=== PATIENT | male | born 1970 | race Hispanic/Latino ===

== ENCOUNTER 2017-05-19 15:01 | Emergency (ER) | payer SELFPAY ==
[2017-05-19] MEDS ORDERED: Ketorolac Tromethamine 30 MG/ML VIAL ONE (16:12)
--- NOTE | 2017-05-19 16:48 | RAD ---
RADIOGRAPH LEFT FOOT THREE VIEWS: 05/19/17 HISTORY: 46-year-old male with left foot pain. COMPARISON: None. FINDINGS: No fracture, dislocation, periosteal elevation, permeative lesion, osteophytic lesion, or osteoblasti c lesion. Mild DJD at first MTP joint. No major arthritic changes at the rest of the joints. No hallu x valgus. IMPRESSION: 1. 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 2. Otherwise negative. POS: JEZ
--- NOTE | 2017-05-19 17:01 | RAD ---
FOUR VIEWS OF THE LEFT KNEE 05/19/17 COMPARISON: None. HISTORY: Left knee pain. FINDINGS: No knee joint effusion, fracture, or evidence of dislocation. IMPRESSION: No acute findings. POS: SYMONE
== END 2017-05-19 16:57 | disposition home or self-care (01) ==
LOC: ERS 15:01
DX: M79.672 Pain in left foot (principal); M25.562 Pain in left knee; F17.210 Nicotine dependence, cigarettes, uncomplicated; E11.9 Type 2 diabetes mellitus without complications
CPT/HCPCS: 36416; 96372; 99406; J1885